=== PATIENT | female | born 1990 | race Caucasian/White ===

== ENCOUNTER → 2019-10-04 | Outpatient (REF) | payer OTHER | LOC: M SFHCLERA 11:23 | PROVIDERS: ATTEND Physician Assistant | DX: J02.0 Streptococcal pharyngitis (principal) ==

== ENCOUNTER → 2021-02-22 | Outpatient (REF) | payer OTHER | LOC: M LAB REF 11:09 | PROVIDERS: ATTEND Physician Assistant | DX: J02.9 Acute pharyngitis, unspecified (principal) ==

== ENCOUNTER → 2021-06-29 | Outpatient (REF) | payer OTHER | LOC: M LAB REF 14:27 | PROVIDERS: ATTEND Physician Assistant | DX: J02.9 Acute pharyngitis, unspecified (principal) ==